=== PATIENT | female | born 1930 | race Caucasian/White ===

== ENCOUNTER → 2016-09-01 15:02 | Outpatient (CLI) | payer MEDICARE, BC ==
[2012-10-04 10:24] VITALS: BMI 29.8
== END | disposition home or self-care (01) ==
LOC: D.US 15:00
DX: R60.0 Localized edema (principal); M79.605 Pain in left leg

== ENCOUNTER 2016-10-09 06:31 | Inpatient (IN) | payer MEDICARE, BC ==
[~2016-10-09] VITALS: Ht 170.2 cm; Wt 75.0 kg
[2016-10-09] VITALS (23 sets, daily range): BP systolic 91–187; BP diastolic 45–108; Ht 170.2 cm; Wt 75.0 kg
--- NOTE | ~2016-10-09 | OP ---
PATIENT NAME: SERA ROSALES MEDICAL RECORD: [id number] :34 LOCATION:[facility] ADMISSION DATE:10/09/16 SURGEON: NAGI CONNOR MD DATE OF OPERATION: 10/09/2016 PROCEDURE: Left heart catheterization, selective coronary angiography, right femoral artery approach. CATHETERS: A 5-Afghan sheath, 5/4 left and right Amber, 5/4 pig. The procedure was well tolerated and the patient returned to parkinson, sheath removed. ExoSeal device placed. FINDINGS: Left ventriculography. This shows anterior apical and inferior apical hypokinesis, this is most consistent with a Takotsubo or apical ballooning syndrome type event. CORONARY ANATOMY: LEFT MAIN: Left main is free of disease. LAD: Free of disease in the diagonal system. CIRCUMFLEX: Has 80% stenosis in mid portion. RIGHT CORONARY ARTERY: Huge dominant artery, free of disease. 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 Still residual disease of circumflex. PLAN: Intervention momentarily. DESCRIPTION OF PROCEDURE: A 5-Afghan sheath was changed for 6-Afghan sheath. A JL4 guiding catheter provided good guide catheter support followed by 300 cm Whisper wire was placed across the site occluded circumflex down to a portion of this vessel followed by 3.0 x 15 mm Integrity nondrug-eluting stent up to 14 atmospheres. Final angiography shows excellent resolution of 80% stenosis, no significant residual. DONAL flow was 3 throughout the procedure. Plavix was loaded in the lab. Sheath was closed with ExoSeal device. Will begin ARB and add beta-leona if pressure tolerates. Further recommendations as above. TRANSINT:[id number] Voice Confirmation ID: [id number] DOCUMENT ID: [id number] NAGI CONNOR MD CC: [id number] DICTATION DATE: 10/09/[address] JUSTICE: 10/09/16 1742 ADM IN [place] [id number] [place] [address]
--- NOTE | ~2016-10-09 | HP ---
PATIENT: SERA ROSALES MEDICAL RECORD: [id number] ACCOUNT: [id number] LOCATION:[facility] AnthonyCV08 : 32 ADMISSION DATE: 10/09/16 HISTORY AND PHYSICAL EXAMINATION HISTORY OF PRESENT ILLNESS: An [id number]-ynon with known history of coronary artery disease, has history of atrial fibrillation as well as hypertension, recently seen for TIA type symptomatology presented with chest tightness and pressure. She has a history of atrial fibrillation with a sinus rhythm at that time, had ECG changes, received Plavix, heparin, pain free at this point, has noticed increasing dyspnea as of late. We are asked to see her concerning her cardiovascular status. PAST MEDICAL HISTORY: Includes: 1. History of hypertension. 2. Paroxysmal atrial fibrillation. MEDICATIONS: Includes sotalol 80 b.i.d. and Bystolic 10 q. day. SOCIAL HISTORY: , lives in [place]. She is a nonsmoker. She takes care of her ADLs. ALLERGIES: MORPHINE. REVIEW OF SYSTEMS: The patient reports easy bruising but reports no swollen glands. The patient reports no fever, no night sweats, no significant weight gain, no significant weight loss. No significant exercise tolerance. The patient reports no dry eyes, no irritation, no vision change. Patient reports no difficulty hearing and no ear pain. Patient reports no frequent nose bleeds or nose and sinus problems. Patient reports on arm pain on exertion. No shortness of breath while lying down. No history of heart murmur. Patient reports no cough, no wheezing or coughing up blood. Patient reports no abdominal pain, no vomiting. Normal appetite. No diarrhea and not vomiting blood. No nausea and no constipation. Patient reports no incontinence. No difficulty urinating. No hematuria. No increased frequency. Patient reports no muscle aches. No weakness, no arthralgias, no back pain. No swelling of the extremities. Patient reports no abnormal mole, no jaundice, no rashes. Reports no loss of consciousness. No weakness and no numbness. No seizures, dizziness, or headaches. The patient reports no depression, no sleep disturbance, feeling safe in a relationship and no alcohol abuse. Patient reports on fatigue. Reports no runny nose or sinus pressure. No itching, no hives, and no frequent sneezing. PHYSICAL EXAMINATION: GENERAL: Female in no acute distress. VITAL SIGNS: Pulse is 54, blood pressure is 164/84. HEENT: Normocephalic, atraumatic. NECK: No bruits noted. HEART: Regular. LUNGS: Brito are clear. ABDOMEN: Soft, nontender. EXTREMITIES: Pulses 2+. There is no edema. DIAGNOSTIC DATA: ECG shows normal sinus rhythm, nonspecific ST-T changes. No old to compared to. HISTORY AND PHYSICAL [id number] SERA ROSALES PLAN: Will plan for diagnostic angiography, intervention based on above. TRANSINT:[id number] Voice Confirmation ID: [id number] DOCUMENT ID: [id number] NAGI CONNOR MD CC: [id number] DICTATION DATE: 10/09/16 0847 GRADUATE RN: 10/09/16 1034 ADM IN [facility] [address] [place] [address]
--- NOTE | ~2016-10-09 | DS ---
PATIENT:SERA ROSALES :34 MEDICAL RECORD: [id number] DISCHARGE SUMMARY ADMISSION DATE: 10/09/16 DISCHARGE DATE: 10/10/16 DATE OF ADMISSION: 10/08/2016 DATE OF DISCHARGE: 10/10/2016 PROBLEM LIST: 1. 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 2. Stenting to circumflex. 3. Hypertension. 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 She had residual disease of circ that was revascularized with stenting. She was started on ARB and ____ losartan secondary to decreased LV function. Discharged home in good condition. FOLLOWUP: Will be in 2-3 weeks. ACTIVITY: As tolerated. DIET: AHA diet. TRANSINT:[id number] Voice Confirmation ID: [id number] DOCUMENT ID: [id number] NAGI CONNOR MD CC: [id number] DICTATION DATE: 10/10/16 1049 CALCIMINER: 10/11/16 0326 DIS IN 10/10/16 [id number] [place] [address]
--- NOTE | ~2016-10-09 | HEMODYNAMI ---
PATIENT:SERA ROSALES MEDICAL RECORD: [id number] : 34 LOCATION:[facility] ADMISSION DATE: 10/09/16 Generatedon:10/09/20169:55 Patient name: SERA ROSALES Patient #: [id number] SSN: [id number] : 1930 Date of study: 10/09/2016 Page: Of Hemodynamic Procedure Report Patient Data Patient Demographics Procedure consent was obtained First Name: SERA Gender: Female Last Name: BOBBY : 1930 Patient #: [id number] Age: 86 year(s) Race: SSN: [id number] Additional ID: [id number] Contact details [address]: [address] [place] [address] State: [place] City: [place] Zip code: [address] Past Medical History Allergies Allergen Reaction Date Comments Reported Other allergy 10/09/2016 Morphine, Adhesive Tape Admission Admission Data Admission Date: 10/09/2016 Admission Time: 6:49 Room #: [id number] Lab Results Lab Result Date: 10/09/2016 Lab Result Time: 0:00 Biochemistry Name Units Result Min Max BUN mg/dl 27 --(----)-* 7 18 Creatinine mg/dl 0.88 --(-*--)-- 0.6 1.3 CBC Name Units Result Min Max Hemoglobin g/dl 13.3 -*(----)-- 13.5 17.5 Procedure Procedure Types Cath Procedure Diagnostic Procedure C [facility] w/Coronaries PCI Procedure Coronary Stent Initial Miscellaneous Procedures Moderate Sedation up to 30 minutes Procedure Description Procedure Date Procedure Date: 10/09/2016 Procedure Start Time: 9:31 Procedure End Time: 9:54 Procedure Staff Name Function Bogdan Garcia MD Performing Physician Tanya Almendarez RT Scrub Valente Ham RN Nurse Payal Kim RN Nurse Nicole Drew RT Monitor Indication Angina Procedure Data Cath Procedure Fluoroscopy Diagnostic fluoroscopy Total fluoroscopy Time: 7.6 time: 7.6 min min Diagnostic fluoroscopy Total fluoroscopy dose: 693 dose: 693 mGy mGy Contrast Material Contrast Material Type Amount (ml) Isovue 300 142 Entry Location Entry Primary Successful Side Size Upsize Upsize Entry Closure Succes sful Closure Location (Fr) 1 (Fr) 2 (Fr) Remarks Device Remarks Femoral Right 5 Fr 6 Fr artery Short Estimated blood loss: 5 ml Diagnostic catheters Device Type Used For End Catheter Placement Cordis 5Fr JL 4.0 Left Coronary Catheter (MP) Angiography Cordis 5Fr 3DRC Catheter Right Coronary (MP) Angiography Cordis 5Fr Pigtail LV Angiography Catheter (MP) Procedure Complications No complications Procedure Medications Medication Administration Route Dosage Oxygen NC 2 l/min Heparin Drip 1000 units/hr (96472torpx/250 D5W) Lidocaine 2% added to field 20 Heparin Flush Bag added to field 2 bags (1000units/500ml NS) 0.9% NaCl I.V. 100 ml/hr unlisted medication I.V. drip 25 Versed I.V. 1 mg Fentanyl I.V. 50 mcg unlisted medication Versed I.V. 1 mg Fentanyl I.V. 50 mcg Hemodynamics Rest HGB: 13.3 (g/dl) Heart Rate: 70 (bpm) Pressure Samples Time Site Value (mmHg) Purpose Heart Use Rate(bpm) 9:37 LV 152/22,26 Snapshot 75 Gradients Valve Time Site Site Mean SEP/DFP Peak To Heart Use 1 2 (mmHg) (sec/min) Peak Rate (mmHg) (bpm) Aortic 9:37 LV AO 73 Snapshots Pre Cath Intra NCS Post Cath Vital Signs Time Heart Resp SPO2 etCO2 TB6owgf NIBP (mmHg) Rhythm Pain Sedation Rate (ipm) (%) (mmHg) (mmHg) Status Level (bpm) 9:15:27 73 15 99 0 0 156/95(114) NSR 0 (11) 10(A) , No pain 9:19:47 73 15 98 0 0 148/87(125) NSR 0 (11) 10(A) , No pain 9:24:07 74 14 96 0 0 146/74(108) NSR 0 (11) 10(A) , No pain 9:28:25 73 15 96 0 0 127/71(91) NSR 0 (11) 10(A) , No pain 9:32:41 74 14 96 0 0 121/71(97) NSR 0 (11) 10(A) , No pain 9:36:55 73 14 96 0 0 142/75(112) NSR 0 (11) 10(A) , No pain 9:41:11 74 14 98 0 0 143/80(110) NSR 0 (11) 9(A) , No pain 9:45:34 69 15 98 0 0 137/72(112) NSR 0 (11) 9(A) , No pain 9:49:54 70 19 97 0 0 136/76(121) NSR 0 (11) 9(A) , No pain 9:53:51 70 19 99 0 0 155/86(134) NSR 0 (11) 9(A) , No pain Medications Time Medication Route Dose Verified Delivered Reason Notes E ffectiveness by by 9:11:32 Oxygen NC 2 l/min Bogdan Buffie used for [facility]. Zackary Ham RN procedure 9:11:50 Heparin Drip I.V. 1000 Bogdan Buffie Per (26488fvigz/250 drip- units/hr [facility] Zackary Ham RN physician D5W) stopped 9:12:02 Lidocaine 2% added 20ml Bogdan Bogdan for local to vial [facility] anesthetic field MD MCDANIEL 9:12:08 Heparin Flush added 2 bags Bogdan Bogdan used for Bag to [facility] procedure (1000units/500ml field MD MCDANIEL NS) 9:12:18 nitroglycerin I.V. 25 Bogdan Buffie Per cont gtt drip mg/250ml [facility] Zackary Ham RN physician from NS@ 35 icu mcg/min. 9:12:18 0.9% NaCl I.V. 100 Bogdan Buffie Per ml/hr [facility] Zackary Ham RN physician 9:27:18 Versed I.V. 1 mg Bogdan Buffie for [facility] Zackary Ham RN sedation 9:27:27 Fentanyl I.V. 50 mcg Bogdan Buffie for [facility] Zackary Ham RN sedation 9:33:00 Nitroglycering stopped Bogdan Buffie gtt [facility]. Zackary Ham RN, MD 9:35:30 Versed I.V. 1 mg Bogdan Buffie for [facility] Zackary Ham RN sedation 9:35:34 Fentanyl I.V. 50 mcg Bogdan Buffie for [facility] Zackary Ham RN sedation Procedure Log Time Note 8:49:07 Informed consent obtained and on chart 8:49:14 Diagnostic Cath Status : Elective 8:49:37 Indication : Angina 8:49:48 Valente Ham RN sent for patient. Start room use. 8:49:49 Time tracking: Regular hours 8:49:54 Plan of Care:Hemodynamics will remain stable., Cardiac rhythm will remain stable., Comfort level will be maintained., Respiratory function will remain adequate., Patient/ family verbilizes understanding of procedure., Procedure tolerated without complication., Recovers from procedure without complications.. 9:11:32 Oxygen 2 l/min NC was administered by Valente Ham RN; used for procedure; 9:11:50 Heparin Drip (37162wzcso/250 D5W) 1000 units/hr I.V. drip- stopped was administered by Valente Ham RN; Per physician; 9:12:02 Lidocaine 2% 20ml vial added to field was administered by Bogdan Garcia MD; for local anesthetic; 9:12:08 Heparin Flush Bag (1000units/500ml NS) 2 bags added to field was administered by Bogdan Garcia MD; used for procedure; 9:12:18 nitroglycerin gtt 25 mg/250ml NS@ 35 mcg/min. I.V. drip was administered by Valente Ham RN; Per physician; cont from icu 9:12:18 0.9% NaCl 100 ml/hr I.V. was administered by Valente Ham RN; Per physician; 9:14:12 Patient received from CVICU to CCL 1 Alert and oriented. Tansferred to table in Supine position. 9:14:14 Warm blankets applied, and roger hugger turned on for patient comfort. 9:14:14 Correct patient and procedure confirmed by team. 9:14:15 ECG and BP/O2 sat monitors applied to patient. 9:14:15 Vital chart was started 9:14:16 Baseline sample Acquired. 9:14:22 Rhythm: sinus rhythm 9:14:24 Full Disclosure recording started 9:14:28 H&P Date Dictated: 10/09/2016 New H&P dictated by physician.. 9:14:30 Pre-procedure instructions explained to patient. 9:14:31 Pre-op teaching completed and patient verbalized understanding. 9:14:32 Family in waiting room. 9:14:33 Patient NPO since Midnight. 9:14:57 Patient allergic to Other allergyMorphine, Adhesive Tape 9:15:01 Is the patient allergic to Iodine/contrast media? No. 9:15:02 Was the patient premedicated? No 9:15:06 Is patient on blood thinner?Yes 9:15:08 ACC The patient was administered the following blood thiners within the last 24 hours: ACCPlavix 9:18:06 Lab Result : Hemoglobin 13.3 g/dl 9:18:06 Lab Result : Creatinine 0.88 mg/dl 9:18:06 Lab Result : BUN 27 mg/dl 9:18:26 Patient diabetic? No. 9:18:34 Previous problem with sedation/anesthesia? No ? 9:18:42 Snore? No 9:18:43 Sleep apnea? No 9:18:49 Deviated septum? No 9:18:50 Opens mouth fully? Yes 9:18:51 Sticks out tongue? Yes 9:18:58 Airway obstruction? No ? 9:19:01 Dentures? No ? 9:19:06 Pre procedure: right dorsailis pedis pulse 1+ Palpable, but thready & weak; easily obliterated 9:19:09 Patient pain scale 0/10 ?. 9:19:19 IV patent on arrival in right forearm with 0.9% NaCl at [facility]. 9:19:23 Lab results completed and on chart. 9:19:27 Right groin area was prepped with chlora-prep and draped in sterile fashion 9:19:28 Alarms reviewed by R. N. 9:19:29 Sharps counted by scrub and verified by R.N. 9:22:04 Physician paged 9:26:45 Physician arrived 9:26:46 --------ALL STOP TIME OUT------ 9:26:47 Final Timeout: patient, procedure, and site verified with staff and physician. All members of the team are in agreement. 9:26:48 Right groin site verified by team. 9:26:52 Physical assessment completed. ASA score P 2 - A patient with mild systemic disease as per Bogdan Garcia MD. 9:26:56 Sedation plan: IV Moderate Sedation Versed, Fentanyl 9:27:18 Versed 1 mg I.V. was administered by Valente Ham RN; for sedation; 9:27:19 Use device set Femoral Dx 9:27:20 Acist Syringe opened to sterile field. 9:27:20 Bag Decanter opened to sterile field. 9:27:21 Medline Cath Pack opened to sterile field. 9:27:21 Terumo 5Fr [place] Sheath opened to sterile field. 9:27:21 St David 260cm J .035 wire opened to sterile field. 9:27:23 Acist Hand Control opened to sterile field. 9:27:24 Acist Manifold opened to sterile field. 9:27:24 Diagnostic Infinity 5Fr Multipack catheter opened to sterile field. 9:27:25 Tegaderm 4 x 4 opened to sterile field. 9:27:27 Fentanyl 50 mcg I.V. was administered by Valente Ham RN; for sedation; 9:28:59 Procedure started. 9:31:52 Local anesthetic to right femoral artery with Lidocaine 2% by Bogdan Garcia MD.INITIAL ACCESS ONLY 9:32:47 A 5 Fr sheath was inserted into the Right Femoral artery 9:33:00 Nitroglycering gtt stopped was administered by Valente Ham RN; ; 9:33:07 A Cordis 5Fr JL 4.0 Catheter (MP) was advanced over the wire and used for Left Coronary Angiography. 9:33:10 LCA angiography performed. 9:33:13 Injector settings: Ml/sec: 3, Volume: 6, 9:33:46 Catheter removed. 9:33:52 A Cordis 5Fr 3DRC Catheter (MP) was advanced over the wire and used for Right Coronary Angiography. 9:35:30 Versed 1 mg I.V. was administered by Valente Ham RN; for sedation; 9:35:34 Fentanyl 50 mcg I.V. was administered by Valente Ham RN; for sedation; 9:36:11 RCA angiography performed. 9:36:14 Injector settings: Ml/sec: 3, Volume: 6, 9:37:11 Catheter removed. 9:37:15 A Cordis 5Fr Pigtail Catheter (MP) was advanced over the wire and used for LV Angiography. 9:37:30 LV hemodynamics recorded. 9:37:32 LV gram done using KRUSE 9:37:34 Injector settings: Ml/sec: 5, Volume: 15, 9:38:21 EF : 35 % 9:38:24 Catheter removed. 9:38:26 Proceeding to intervention. 9:38:48 Terumo 6Fr [place] Sheath opened to sterile field. 9:38:48 Merit BasixCompak Inflation Kit opened to sterile field. 9:39:02 Frank Whisper J 300cm 0.014 guide wire opened to sterile field. 9:40:24 Medtronic Launcher 6Fr JL 4.0 guide catheter opened to sterile field. 9:41:03 Sheath upsized to a 6 Fr Short. 9:41:10 6 Fr jl 4 guide catheter was inserted over the wire 9:41:16 whisper wire advanced. 9:43:50 Wire advanced across lesion. 9:50:44 Inflation Number: 1 A Medtronic Integrity 3.0 X 15 stent was prepped and advanced across the Mid CX. The stent was deployed at 12 ALISA for 0:30 (min:sec). 9:51:26 Stent catheter was removed intact over wire. 9:51:27 Wire removed. 9:51:27 Guide catheter removed. 9:52:01 Cordis 6Fr Exoseal opened to sterile field. 9:52:41 Procedure ended.(Physican Out) 9:53:07 Fluoroscopy time 07.60 minutes. 9:53:13 Fluoroscopy dose: 693 mGy 9:53:13 Flurop Dose total: 693 9:53:23 Contrast amount:Isovue 300 142ml. 9:53:25 Sharps counted by scrub and verified by R.N. 9:53:26 Insertion/operative site no bleeding no hematoma. 9:53:29 Post-op/insertion site Right Femoral artery dressed using a 4 x 4 and Tegaderm. 9:53:32 Post right femoral artery:stable 9:53:34 Post Procedure Pulses reassessed and unchanged 9:53:38 Post procedure rhythm: unchanged. 9:53:40 Estimated blood loss: 5 ml 9:53:42 Post procedure instruction explained to patient.Patient verbalizes understanding. 9:53:42 Patient needs reinforcement of post procedure teaching. 9:54:00 Procedure type changed to Cath procedure, Diagnostic procedure, LHC, LHC w/Coronaries, PCI procedure, Coronary Stent Initial, Miscellaneous Procedures, Moderate Sedation up to 30 minutes 9:54:01 Procedure and supply charges have been captured, reviewed, submitted and are correct. 9:54:05 Procedure Complication : No complications 9:54:08 Vital chart was stopped 9:54:08 See physician's report for complete and final results. 9:54:13 Report given to CVICU. 9:54:17 Patient transfered to CVICU with Stretcher. 9:54:19 Procedure ended. 9:54:19 Full Disclosure recording stopped 9:54:27 ACC-PCI Only Patient was given prescriptions, or instructed by Bogdan Garcia MD to start/continue the following medications upon discharge: Plavix 9:54:29 End room use (Document Last) Intervention Summary Intervention Notes Time ActionType Lesion and Equipment Action# Pressure Duration Attributes Used 9:50:44 Place stent Mid CX Medtronic 1 12 00:30 Integrity 3.0 X 15 stent Device Usage Item Name Manufacture Quantity Catalog Hospital Part Current Minimal L ot# / Number Charge Number Stock Stock Serial# Code Acist Acist 1 55067 [id number] 124968 525454 20 Syringe Medical Systems Inc Bag Microtek 1 2002S 002865 01873 157051 5 Decanter Medical Inc. Medline Cardinal 1 [id number] 918899 49095 308244 5 Cath Pack Health Terumo 5Fr Terumo 1 [id number] 020942 719752 521956 [address] [place] [address] [facility] 1 822221 246010 135141 180333 30 260cm J .035 wire Acist Hand Acist 1 98472 152093 779877 245666 5 Control Medical Systems Inc Acist Acist 1 23280 476252 979308 015068 5 Manifold Medical Systems Inc Diagnostic Cardinal 1 GL7345 599142 36877 765093 30 Infinity Health 5Fr Multipack catheter Tegaderm 4 3M 1 1626W 639971 788472 495963 5 x 4 Cordis 5Fr Cardinal 1 109922 5 JL 4.0 Health Catheter (MP) Cordis 5Fr Cardinal 1 952865 5 3DRC Health Catheter (MP) Cordis 5Fr Cardinal 1 221867 5 Pigtail Health Catheter (MP) Terumo 6Fr Terumo 1 IMH110 579502 918124 578376 40 [place] Sheath Merit Merit 1 KQ0976 861032 402899 390779 15 BasixCompak Medical Inflation Kit Frank Frank 1 [id number] 503982 010963 218517 5 Whisper J Vascular 300cm 0.014 guide wire Medtronic Medtronic 1 [id number] 582128 61029 371155 1 Launcher 6Fr JL 4.0 guide catheter Medtronic Medtronic 1 [id number] 362790 728099 1 0 [id number] Integrity 3.0 X 15 stent Cordis 6Fr Cardinal 1 EX600 248444 550776 901779 10 [facility] RainStor Signature Audit [place] Stage Time Signature Unsigned Intra-Procedure 10/09/2016 Tanya Erickson 9:55:21 AM RT(R) Signatures Monitor : Nicole Drew Signature : RT Date : Time : [address] [place] [address]
--- NOTE | 2016-10-09 08:53 | NUR ---
FAITH GIVEN FOR PRE OP. 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
--- NOTE | 2016-10-09 10:15 | NUR ---
RETURNED FROM GENERALIST. FEMSTOP IN PLACE. PT AROUSABLE TO VOICE. DENIES NEEDS. NO S/SX OF BLEEDING OR HEMATOMA NOTED.
[2016-10-09 12:15] LABS: BASOPHILS 0.5 % (0-2); EOSINOPHILS 0.4 % (0-7); HEMATOCRIT 42.7 % (36.0-48.0); HEMOGLOBIN 14.1 g/dL (12-16); IMMATURE GRANULOCYTES 0.3 % (0-5); LYMPHOCYTES 27.2 % (15-50); MCH 29.9 pg (26.0-34.0); MCV 90.7 fL (80.0-100.0); MEAN PLATELET VOLUME 10.3 fL (7.4-10.4); MONOCYTES 8.3 % (2-11); NEUTROPHILS 63.3 % (40-80); PLATELET COUNT 161 10x3/uL (130-400); RBC 4.71 10x6/uL (4.00-5.40); RDW 13.8 % (11.5-14.5); WBC 7.7 10x3/uL (4.8-10.8)
[2016-10-09 12:21] LABS: CARBON DIOXIDE 28.7 mmol/L (21.0-32.0); CREATININE - SERUM 0.8 mg/dL (0.6-1.3); POTASSIUM - SERUM 3.7 mmol/L (3.5-5.1)
--- NOTE | 2016-10-09 13:45 | NUR ---
ASSISTED WITH BEDPAN.
--- NOTE | 2016-10-09 14:25 | NUR ---
RESTING EYES CLOSED EVEN UNLABORED RESP NOTED. NO S/SX OF BLEEDING OR HEMATOMA. PEDAL PULSES PRESENT.
[2016-10-09] MEDS ORDERED: BETAPACE 80 MG80 MG PO (16:56)
--- NOTE | 2016-10-09 23:30 | NUR ---
1929- REPORT RECVD. CARE ASSUMED. INITIAL ASSMNT COMPLETED. SEE FLOWSHEET FOR ALL FINDINGS. AWAKE AND AOX4. PERRLA. MAEW. RESP UNLABORED. LUNGS CTA. SPO2 96% ON RA. UCAFIB ON THE MONITOR. TREATING WITH HOME MED BETAPACE PER DR CONNOR. RIGHT GROIN SOFT, CDI. PEDAL PULSES PALP. UP TO BR WITH MINIMAL ASSIST TO VOID NO DIFF. ABD SOFT. BSA X4. REPORTS SEVERE PAIN IN LEFT SHOULDER. WILL GIVE PRN NORCO. PO FLUIDS AT BEDSIDE. HOB UP. C/L IN REACH. CONT CURRENT POC. 2100- RESTING WITH NO DISTRESS. PRN NORCO EFFECTIVE. VSS. C/L IN REACH. BED ALARM ON FOR SAFETY. CONT POC. 0- REASSESSMENT COMPLETED. SEE FLOWSHEET FOR ALL FINDINGS. RESTING WITH NO DISTRESS. AOX4. PERRLA. MAEW. UP TO BR WITH MINIMAL ASSIST. RESP UNLABORED. LUNGS CTA. ON RA. SPO2 96%. CAFIB ON THE MONITOR. PULSES PALP. RIGHT GROIN CDI. SOFT. DENIES FURTHER SHOULDER DISCOMFORT. HOB UP. C/L IN REACH. CONT CURRENT POC.
[2016-10-10] VITALS (12 sets, daily range): BP systolic 81–106; BP diastolic 44–53
--- NOTE | 2016-10-10 01:07 | NUR ---
RESTING WITH EYES CLOSED ON LEFT SIDE. CAFIB ON THE MONITOR. NO NEEDS VOICED. HOB UP. C/L IN REACH. CONT CURRENT POC.
--- NOTE | 2016-10-10 03:30 | NUR ---
REASSESSMENT COMPLETED. SEE FLOWSHEET FOR ALL FINDINGS. RESTING WITH NO DISTRESS. AOX4. PERRLA. MAEW. UP TO BR WITH MINIMAL ASSIST. RESP UNLABORED. LUNGS CTA. ON RA. SPO2 96%. CAFIB ON THE MONITOR. PULSES PALP. RIGHT GROIN CDI. SOFT. DENIES FURTHER SHOULDER DISCOMFORT. HOB UP. C/L IN REACH. CONT CURRENT POC.
--- NOTE | 2016-10-10 05:00 | NUR ---
AT 0410, PT REQUESTED PRN PAIN MED FOR MILD DISCOMFORT TO LEFT SHOULDER. EFFECTIVE. RESTING WITH EYES CLOSED. NO FURTHER C/O VOICED. CONT POC.
[2016-10-10] MEDS ORDERED: COZAAR100 MG PO (10:58)
[2016-10-10] MEDS ORDERED: PLAVIX75 MG PO (10:58)
--- NOTE | 2016-10-10 11:52 | NUR ---
RX CALLED INTO [facility] IN [place]. SPOKE WITH SHILOH ELIZABETH.
--- NOTE | 2016-10-10 13:46 | NUR ---
DC INSTRUCTIONS REVIEWED WITH PT AND SON. BOTH VERBALIZE UNDERSTANDING OF ALL DC INSTRUCTIONS. NO FURTHER QUESTIONS. PT DC'D HOME.
== END 2016-10-10 13:46 | disposition home or self-care (01) | DRG 249 ==
LOC: D.CVICU 06:31
PROVIDERS: ADMIT Internal Medicine Interventional Cardiology
PROC: B2111ZZ Fluoroscopy of Multiple Coronary Arteries using Low Osmolar Contrast (ICD-10-PCS; 2016-10-09)
PROC: B2151ZZ Fluoroscopy of Left Heart using Low Osmolar Contrast (ICD-10-PCS; 2016-10-09)
PROC: 02703DZ Dilation of Coronary Artery, One Artery with Intraluminal Device, Percutaneous Approach (ICD-10-PCS; principal; 2016-10-09 08:45)
PROC: 4A023N7 Measurement of Cardiac Sampling and Pressure, Left Heart, Percutaneous Approach (ICD-10-PCS; 2016-10-09 08:45)
DX: I21.3 ST elevation (STEMI) myocardial infarction of unspecified site (principal); I51.81 Takotsubo syndrome; I48.0 Paroxysmal atrial fibrillation; I10 Essential (primary) hypertension

== ENCOUNTER 2016-10-12 10:26 | Observation (INO) | payer MEDICARE, BC ==
[~2016-10-12] VITALS: Ht 165.1 cm; Wt 76.2 kg
[~2016-10-12 10:26] MED LIST: BETAPACE 80 MG80 MG PO; COZAAR100 MG PO; PLAVIX75 MG PO
[2016-10-12 11:11] LABS: APTT 24.4 SECONDS (22.8-39.4); INR 1.02 (0.85-1.17); PROTIME 13.3 SECONDS (11.6-15.0)
[2016-10-12 11:16] LABS: BASOPHILS 0.5 % (0-2); EOSINOPHILS 2.2 % (0-7); HEMATOCRIT 39.4 % (36.0-48.0); HEMOGLOBIN 12.9 g/dL (12-16); IMMATURE GRANULOCYTES 0.2 % (0-5); LYMPHOCYTES 27.3 % (15-50); MCH 30.1 pg (26.0-34.0); MCHC 32.7 g/dL (31.0-37.0); MCV 92.1 fL (80.0-100.0); MEAN PLATELET VOLUME 10.8 fL (7.4-10.4); MONOCYTES 13.2 % (2-11); NEUTROPHILS 56.6 % (40-80); PLATELET COUNT 180 10x3/uL (130-400); RBC 4.28 10x6/uL (4.00-5.40); RDW 14.6 % (11.5-14.5)
[2016-10-12 11:22] LABS: ALBUMIN 3.3 g/dL (3.4-5.0); BILIRUBIN - TOTAL 0.99 mg/dL (0.2-1.3); CALCIUM 9.1 mg/dL (8.5-10.1); CARBON DIOXIDE 27.7 mmol/L (21.0-32.0); CREATININE - SERUM 1.1 mg/dL (0.6-1.3); POTASSIUM - SERUM 3.7 mmol/L (3.5-5.1); PROTEIN - SERUM 6.7 g/dL (6.4-8.2)
[2016-10-12 11:44] LABS: TROPONIN-I 1.982 ng/mL (0.000-0.060)
--- NOTE | 2016-10-12 12:10 | NUR ---
PT RECEIVED TO ROOM 2124 VIA WHEELCHAIR, ACCOMPANIED BY HER SON. PT ORIENTED TO ROOM AND CALL LIGHT. NO ORDERS FOR IV FLUIDS AT THIS TIME. RT WRIST IV SL. RATIONAL GIVEN FOR SCD'S PT REFUSED TO WEAR THEM. WILL ASSESS PT AND START PLAN OF CARE.
[2016-10-12 12:40] VITALS: BP 147/82; Ht 165.1 cm; Wt 76.2 kg
[2016-10-12 16:03] VITALS: BP 126/68
[2016-10-12 19:00] VITALS: BP 119/56
--- NOTE | 2016-10-12 21:45 | NUR ---
HS MEDS GIVEN, DENIES NEEDS.
[2016-10-13] VITALS: BP 137/84
--- NOTE | 2016-10-13 00:12 | NUR ---
AT NURSES STATION VISITING WITH STAFF, PT DENIES NEEDS, ICE CREAM GIVEN FOR SNACK.
--- NOTE | 2016-10-13 03:28 | NUR ---
RESTING WITH EYES CLOSED, RESPERATIONS EVEN, NO S/S DISTRESS NOTED.
[2016-10-13 04:00] VITALS: BP 111/54
[2016-10-13 07:00] VITALS: BP 141/69
--- NOTE | 2016-10-13 07:16 | NUR ---
AM ROUNDS- PT IN BED, WITH EYES CLOSED, RT FA IV SL. CALL LIGHT IN REACH, BED LOW AND LOCKED, BEDSIDE RAILS X2, NAD NOTED, WILL CONTINUE TO MONITOR.
--- NOTE | 2016-10-13 08:52 | NUR ---
ADMINISTERED AM MEDS. PT IN BED, EATING BREAKFAST. DENIES ANY NEEDS AT THIS TIME. HAT IN THE BATHROOM EMPTIED. CALL LIGHT IN REACH, NAD NOTED, WILL CONTINUE TO MONITOR.
--- NOTE | 2016-10-13 09:20 | HP ---
PATIENT: SERA ROSALES MEDICAL RECORD: [id number] ACCOUNT: [id number] LOCATION:[address] : 34 ADMISSION DATE: 10/12/16 HISTORY AND PHYSICAL EXAMINATION DIAGNOSES: 1. Shortness of breath. 2. Atypical chest pain. 3. Coronary artery disease. 4. Recent percutaneous transluminal coronary angioplasty stent. 5. Hypertension. 6. Paroxysmal atrial fibrillation. HISTORY OF PRESENT ILLNESS: Mrs. Rosales presents with shortness of breath, dyspnea on exertion and a sharp chest pain, not like the heaviness she was having prior to her stent on Tuesday, it is a clavicular pain that is sharp, somewhat positional. She was seen by her primary doctor. Chest x-ray was performed. No pneumothorax or gross problems were noted on the chest x-ray. She was sent here for further workup. She did have PTCA stent of the left circumflex for single-vessel disease with a bare-metal stent on Tuesday. Her EKG is unchanged. Troponin is pending. PHYSICAL EXAMINATION: GENERAL APPEARANCE: Well-nourished, well-developed, appears stated age. Level of distress, comfortable. PSYCHIATRIC: Mental status, alert, normal affect. Orientation, oriented to time, place and person. EYES: Lids and conjunctiva, noninjected. No discharge, no pallor. ENT: Lips, teeth, gums, normal dentition. Oropharynx, no cyanosis, no pallor. NECK: Carotid arteries, bilateral normal upstroke, no bruits, no thrills. JUGULAR VEINS: No jugular venous pressure or distention. CERVICAL LYMPH NODES: Nontender, nonenlarged. THYROID: Not enlarged. Nontender. No nodules. LUNGS: Respiratory effort, unlabored. CHEST: Normal curvature. No thoracic deformity. No chest wall tenderness. Percussion, resonant. Auscultation, clear. No wheezes, no rales, no rhonchi. CARDIOVASCULAR: Precordial exam, nondisplaced. No heaves or pericardial thrills. Rate and rhythm, regular. Heart sounds, normal S1, normal S2. No S3, no gallop, no rub. Systolic murmur, not heard. Diastolic murmur, not heard. EXTREMITIES: No cyanosis, no edema. Peripheral pulses, full and equal in all extremities, except as noted. No bruits appreciated. ABDOMEN: Soft, nondistended. Normal aorta. No bruit. Nontender. No masses. Liver, nontender, no hepatomegaly. Spleen, nontender, no splenomegaly. MUSCULOSKELETAL: No joint tenderness. No joint swelling. No erythema. NEUROLOGICAL: Normal gait, normal strength, normal tone. SKIN: Warm and dry. REVIEW OF SYSTEMS: The patient reports easy bruising but reports no swollen glands. The patient reports no fever, no night sweats, no significant weight gain, no significant weight loss. No significant exercise tolerance. The patient reports no dry eyes, no irritation, no vision change. Patient reports no difficulty hearing and no ear pain. Patient reports no frequent nose bleeds or nose and sinus problems. Patient reports on arm pain on exertion. No shortness of breath while lying down. No history of heart murmur. Patient reports no cough, no wheezing or coughing up blood. Patient reports no HISTORY AND PHYSICAL [id number] ROSALES,SERA abdominal pain, no vomiting. Normal appetite. No diarrhea and not vomiting blood. No nausea and no constipation. Patient reports no incontinence. No difficulty urinating. No hematuria. No increased frequency. Patient reports no muscle aches. No weakness, no arthralgias, no back pain. No swelling of the extremities. Patient reports no abnormal mole, no jaundice, no rashes. Reports no loss of consciousness. No weakness and no numbness. No seizures, dizziness, or headaches. The patient reports no depression, no sleep disturbance, feeling safe in a relationship and no alcohol abuse. Patient reports on fatigue. Reports no runny nose or sinus pressure. No itching, no hives, and no frequent sneezing. OVERALL IMPRESSION: Chest pain, atypical for angina, not known etiology. Her shortness of breath very well may be fluid overload, which was iatrogenic after the procedure. We will give her IV Lasix and admit for observation, get serial CPK and troponins as well. TRANSINT:[id number] Voice Confirmation ID: [id number] DOCUMENT ID: [id number] JASON SUE MD at 0920 CC: [id number] DICTATION DATE: 10/12/16 1111 SMOG TECHNICIAN: 10/12/16 1253 ADM IN [place] [id number] [place] [address]
--- NOTE | 2016-10-13 10:39 | NUR ---
PROVIDED VERBAL AND WRITTEN DICHARGE INSTRUCTIONS TO PT. PT VERBALIZED UNDERSTANDING REGARDING INSTRUCTIONS. D/C RT WRIST IV, TIP INTACT. PT WAITING ON RIDE, WILL NOTIFY THIS RN WHEN READY. NAD NOTED, WILL CONTINUE TO MONITOR.
[2016-10-13 12:00] VITALS: BP 124/60
--- NOTE | 2016-10-13 14:03 | NUR ---
PT LEFT UNIT VIA WHEELCHAIR, ACCOMPANIED BY SON, ALFRED. NAD NOTED.
--- NOTE | 2016-10-14 08:49 | DS ---
PATIENT:SERA ROSALES :34 MEDICAL RECORD: [id number] DISCHARGE SUMMARY ADMISSION DATE: 10/12/16 DISCHARGE DATE: 10/13/16 DISCHARGE DIAGNOSES: 1. Chest pain. 2. Coronary artery disease. 3. Recent percutaneous transluminal coronary angioplasty stent. 4. Hypertension. 5. Shortness of breath. HOSPITAL COURSE: Mrs. Rosales presents with shortness of breath and chest pain after PTCA stent on Tuesday. Most likely, this is secondary to fluid overload. She received IV Lasix times 2 doses, had a good diuresis and her symptomatology resolved. Her EKG was with no changes. Her troponin was mildly elevated; however, it was mildly elevated prior to the intervention on Tuesday and this was trending downward. She was discharged home with no changes in her medications. We will follow up with [facility] in 2 weeks. TRANSINT:[id number] Voice Confirmation ID: [id number] DOCUMENT ID: [id number] JASON SUE MD at 0849 CC: [id number] DICTATION DATE: 10/13/16921 [employer]: 10/14/16 0713 DIS IN 10/13/16 [place] [id number] [place] [id number]
== END 2016-10-13 14:03 | disposition home or self-care (01) ==
LOC: D.ER 10:26 → D.M2 11:09 → OBSVTIME 11:09 → D.M2 11:09
PROVIDERS: Emergency Medicine; ADMIT Internal Medicine Interventional Cardiology
DX: R07.89 Other chest pain (principal); I25.10 Atherosclerotic heart disease of native coronary artery without angina pectoris; Z95.5 Presence of coronary angioplasty implant and graft; I48.0 Paroxysmal atrial fibrillation; I10 Essential (primary) hypertension; E87.70 Fluid overload, unspecified